=== PATIENT | female | born 2005 | race African-American/Black ===

== ENCOUNTER 2025-04-13 10:13 | Emergency (ER) | payer OTHER ==
[~2025-04-13] VITALS: Ht 167.6 cm; Wt 87.5 kg
[2025-04-13] MEDS: KETOROLAC 30 MG/ML 1 ML VIAL IV ONE (11:44)
[2025-04-13] MEDS ORDERED: INDO50CA91 PO (13:17)
[2025-04-13 13:23] VITALS: BP 137/82; TEMP 98.2; O2SAT 100
== END 2025-04-13 13:25 | disposition home or self-care (01) ==
LOC: EDBD 10:13 → M ED 10:13
DX: R07.89 Other chest pain (principal); M94.0 Chondrocostal junction syndrome [Tietze]; Z79.899 Other long term (current) drug therapy
CPT/HCPCS: 71046; 93005; 96374; 99284; J1885